=== PATIENT | female | born 1985 | race Caucasian/White ===

== ENCOUNTER → 2017-06-06 | Outpatient (CLI) | payer BC, OTHER | LOC: ULTRA 12:51 | DX: R94.5 Abnormal results of liver function studies (principal); R10.11 Right upper quadrant pain ==

== ENCOUNTER → 2021-09-20 | Outpatient (CLI) | payer OTHER | LOC: CAT 14:58 | PROVIDERS: ATTEND Contractor | DX: Z13.6 Encounter for screening for cardiovascular disorders (principal); E78.00 Pure hypercholesterolemia, unspecified; I25.10 Atherosclerotic heart disease of native coronary artery without angina pectoris ==